=== PATIENT | female | born 1940 | race African-American/Black ===

== ENCOUNTER 2016-10-26 22:23 | Emergency (ER) | payer MEDICARE ==
[~2016-10-26] VITALS: Ht 165.1 cm; Wt 61.2 kg
[2016-10-26 22:46] VITALS: BP 166/72; PULSE 63; RESP 12; TEMP 97.9; O2SAT 99
[2016-10-26 23:00] VITALS: BP 166/71; PULSE 63; RESP 12; TEMP 97.9; O2SAT 99
--- NOTE | 2016-10-26 23:53 | PD ---
HPI Chief Complaint: Pain: Acute or Chronic Time Seen by Provider: 23:52 Travel History International Travel<30 days: No Contact w/Intl Traveler<30days: No Traveled to known affect area: No History of Present Illness HPI 76-year-old female presents to the emergency department by private transportation the care of family for complaint of brief duration of sudden onset right trapezius pain radiating into the neck and scalp area while having an argument with her sibling. Patient states she recently moved here from [place] and is living with her brother and sister. Patient has not quite settled in the area but has moved here to live. 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 Patient takes no medications on a daily basis. Patient states at the time of her discomfort she rated her pain 5-7/10 in intensity presently it is 0/10 in intensity. Patient called a friend who is a nurse was told to come to the emergency room. Patient experienced no thunderclap headache worst headache of her life visual disturbance also disturbance change in mentation numbness tingling or weakness of the upper extremities or lower extremities or ataxia gait. No nausea no vomiting. No chest pain no palpitations no shortness of breath. No diaphoresis. Patient states when she palpates her posterior shoulder is warp dyeing tender but otherwise has no pain and rates her discomfort is 0/10 in intensity. PFSH Past Medical History Narrative Medical Salivary gland mass, arthritis right knee, cholecystectomy; no tobacco use no alcohol use no substance use; nursing notes reviewed Diminished Hearing: No Medical other: Yes (SALIVARY TUMOR, TORN LIGAMENTS R LEFT) Tetanus Vaccination: Unknown Influenza Vaccination: No ?: Not : 3 Para: 3 Miscarriage: 0 : 0 Past Surgical History Cholecystectomy: Yes Social History Alcohol Use: Yes (OCC) Tobacco Use: No Substance Use: No Allergies-Medications (Allergen,Severity, Reaction): Coded Allergies: No Known Allergies (Unverified , 10/26/16) Reported Meds & Prescriptions Reported Meds & Active Scripts Active No Active Prescriptions or Reported Medications Review of Systems Except as stated in HPI: all other systems reviewed are Neg General / Constitutional: No: Fever, Chills Eyes: No: Diploplia, Blurred Vision, Photophobia HENT: Positive: Headaches, Neck Pain, No: Lightheadedness Cardiovascular: No: Chest Pain or Discomfort, Palpitations, Diaphoresis, Syncope Gastrointestinal: No: Nausea, Vomiting Genitourinary: No: Dysuria, Decreased Urinary Output Musculoskeletal: No: Myalgias, Arthralgias Skin: No Rash Neurologic: Positive: Headache, No: Weakness, Dizziness, Syncope, Focal Abnormalities, Coordination Problem, Ataxia, Change in Mentation, Slurred Speech , Paresthesia, Seizures Psychiatric: No: Anxiety Endocrine: No: Heat Intolerance Hematologic/Lymphatic: No: Easy Bruising Physical Exam Narrative GENERAL: Well-developed well-nourished pleasant female in no acute distress no respiratory distress; gcs 15 SKIN: Warm and dry. HEAD: Atraumatic. Normocephalic. No mass no hematoma no fluctuance no abrasion no pustule no bony tenderness EYES: Pupils equal and round. No scleral icterus. No injection or drainage. ENT: No nasal bleeding or discharge. Mucous membranes pink and moist. NECK: Trachea midline. No JVD. Supple nontender to direct palpation except for reproducible mild tenderness to right trapezius area and mild scalp tenderness to palpation no mass CARDIOVASCULAR: Regular rate and rhythm. RESPIRATORY: No accessory muscle use. Clear to auscultation. Breath sounds equal bilaterally. GASTROINTESTINAL: Abdomen soft, non-tender, nondistended. Hepatic and splenic margins not palpable. MUSCULOSKELETAL: Extremities without clubbing, cyanosis, or edema. No obvious deformities. NEUROLOGICAL: Awake and alert. No obvious cranial nerve deficits. Motor grossly within normal limits. Five out of 5 muscle strength in the arms and legs. No limb ataxia. No pronator drift. Sensory exam intact. DTRs 2+ and equal bilaterally. Normal speech. PSYCHIATRIC: Appropriate mood and affect; insight and judgment normal. Data Data Last Documented VS Vital Signs Date Time Temp Pulse Resp B/P (MAP) Pulse Ox O2 Delivery O2 Flow Rate FiO2 10/27/16 01:55 98.6 58 14 164/72 (102) 99 10/27/16 00:33 Room Air Orders Orders Ct Brain W/O Iv Contrast(Rout) (10/26/16 ) [facility] Medical Decision Making Medical Screen Exam Complete: Yes Emergency Medical Condition: Yes Medical Record Reviewed: Yes Differential Diagnosis Musculoskeletal pain, trapezius spasm, TIA, cephalgia, ICH, also to consider aneurysm unlikely dissection Narrative Course CT brain w/o contrast ordered CT in no acute intracranial abnormality nonspecific small colloid cyst Patient comfortable voicing no concerns or complaints informed of imaging results in stable for outpatient management Patient encouraged to follow-up with primary care provider Diagnosis Primary Impression: Trapezius muscle spasm Additional Impression: Cephalgia Referrals: Primary Care Physician call for appointment Patient Instructions: General Instructions Additional Instructions: May use as tolerated acetaminophen/Tylenol for area of discomfort For first 12-24 hours may use ice pack intimately to area of soft tissue swelling or discomfort then change to moist heat [place] primary care provider Return to the emergency department for any concerns or change in condition Med/Other Pt SpecificInfo: No Change to Meds Scripts No Active Prescriptions or Reported Meds Disposition: 01 DISCHARGE HOME Condition: Stable Christina Rodriguez MD Oct 26, 2016 23:53
[2016-10-27 00:33] VITALS: BP_SYST 154; BP_SYST 156; BP_DIAS 62; BP_DIAS 88; PULSE 63; RESP 14; TEMP 97.9; O2SAT 98
[2016-10-27 01:55] VITALS: BP 164/72; TEMP 98.6
--- NOTE | 2016-10-27 02:58 | RADRPT ---
EXAM DATE/TIME: 10/27/2016 00:56 [facility] COMPARISON: No previous studies available for comparison. INDICATIONS : Cephalgia. Neck pain. RADIATION DOSE: 57.35 CTDIvol (mGy) MEDICAL HISTORY : None SURGICAL HISTORY : None. ENCOUNTER: Initial ACUITY: 1 day PAIN SCALE: 5/10 LOCATION: Left cranial TECHNIQUE: Multiple contiguous axial images were obtained of the head. Using automated exposure control and adj ustment of the mA and/or kV according to patient size, radiation dose was kept as low as reasonably a chievable to obtain optimal diagnostic quality images. DICOM format image data is available electro nically for review and comparison. FINDINGS: CEREBRUM: There is a 3 mm high attenuation focus which is smoothly marginated and well circumscribed involving the region of the foramen of Morel. The ventricles are normal for age. No evidence of midline shift , hemorrhage or acute infarction. No extra-axial fluid collections are seen. POSTERIOR FOSSA: The cerebellum and brainstem are intact. The 4th ventricle is midline. The cerebellopontine angle i s unremarkable. EXTRACRANIAL: The visualized portion of the orbits is intact. SKULL: The calvaria is intact. No evidence of skull fracture. CONCLUSION: 1. No acute intracranial abnormality. 2. 3 mm high attenuation focus centered at the foramen of Morel consistent with a small colloid cyst . Attila Willis Jr., MD on October 27, 2016 at 1:15 Board Certified Radiologist. This report was verified electronically.
== END 2016-10-27 03:35 | disposition home or self-care (01) ==
LOC: PHED 22:23
DX: M62.830 Muscle spasm of back (principal); R51 Headache; M17.12 Unilateral primary osteoarthritis, left knee
CPT/HCPCS: 70450